=== PATIENT | male | born 1940 | race Caucasian/White ===

== ENCOUNTER 2020-12-14 09:06 | Emergency (ER) | payer MEDICARE, OTHER ==
[2020-12-14] MEDS ORDERED: Sodium Chloride 0.9% 10 ML Syringe FLUSH PRN (09:29)
[2020-12-14] MEDS ORDERED: Sodium Chloride 0.9% 1,000 ML IV STA (09:29)
[2020-12-14] MEDS ORDERED: Pantoprazole 40 MG Vial IVPUSH ONE (09:37)
--- NOTE | 2020-12-14 09:41 | EDM.PDOC ---
ED HPI GENERAL MEDICAL PROBLEM - General Chief Complaint: Gastrointestinal Problem Stated Complaint: BLACK STOOLS Time Seen by Provider: 12/14/20 09:20 Source of Information: Reports: Patient History Limitations: Reports: No Limitations - History of Present Illness INITIAL COMMENTS - FREE TEXT/NARRATIVE: The patient presents with generalized abdominal pain and dark stools. This all started a few days ago. The pain is mild but back in 2012. He had dark stools and it ended up being a GI bleed. He has a history of diverticulitis with colon resection. That was in 1990 and there were complications. 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 He does not think he has an appendix. He is not sure if he has a gallbladder with all the surgeries he had. He has no nausea, vomiting or diarrhea. He was constipated for a couple of days. He has no dysuria. He has no fever, chills, cough, chest pain, or shortness of breath. Onset: Gradual Duration: Day(s): Location: Reports: Abdomen Quality: Reports: Ache Severity: Mild Improves with: Reports: None Worsens with: Reports: None Associated Symptoms: Denies: Chest Pain, Cough, Fever/Chills, Headaches, Nausea/Vomiting, Shortness of Breath Abdominal Pain Score (Numeric/FACES): 2 - Related Data Allergies Allergy/AdvReac Type Severity Reaction Status Date / Time No Known Allergies Allergy Verified 12/14/20 09:22 Home Meds: Home Meds Levothyroxine 1 tab PO DAILY 12/14/20 [History] Omeprazole 1 tab PO DAILY 12/14/20 [History] Simvastatin 1 tab PO DAILY 12/14/20 [History] Past Medical History Cardiovascular History: Reports: High Cholesterol Genitourinary History: Reports: Other (See Below) - Infectious Disease History Infectious Disease History: Reports: Novel Coronavirus - Past Surgical History HEENT Surgical History: Reports: Tonsillectomy GI Surgical History: Reports: Appendectomy, Other (See Below) Other GI Surgeries/Procedures: removal of portion of large intestine Male Surgical History: Reports: Nephrectomy Other Male Surgeries/Procedures: L kidney Musculoskeletal Surgical History: Reports: Shoulder Surgery Social & Family History - Tobacco Use Tobacco Use Status *Q: Former Tobacco User Used Tobacco, but Quit: Yes Month/Year Tobacco Last Used: 1975 - Caffeine Use Caffeine Use: Reports: Coffee - Recreational Drug Use Recreational Drug Use: No ED ROS GENERAL - Review of Systems Review Of Systems: See Below Constitutional: Reports: No Symptoms HEENT: Reports: No Symptoms Respiratory: Reports: No Symptoms Cardiovascular: Reports: No Symptoms Endocrine: Reports: No Symptoms GI/Abdominal: Reports: Abdominal Pain, Black Stool. Denies: Nausea, Vomiting : Reports: No Symptoms Musculoskeletal: Reports: No Symptoms ED EXAM, GI/ABD - Physical Exam Exam: See Below Exam Limited By: No Limitations General Appearance: Alert, No Apparent Distress Ears: Normal External Exam Nose: Normal Inspection Head: Atraumatic, Normocephalic Neck: Normal Inspection Respiratory/Chest: No Respiratory Distress, Lungs Clear, Normal Breath Sounds Cardiovascular: Regular Rate, Rhythm, No Edema, No Murmur GI/Abdominal Exam: Soft, No Organomegaly, No Mass, Tender (Mild generalized tenderness) Rectal (Males) Exam: Black Stool, Heme - Stool Back Exam: Normal Inspection Course - Vital Signs Last Recorded V/S: Last Vital Signs Temp 98 F 12/14/20 09:18 Pulse 65 12/14/20 09:18 Resp 18 12/14/20 09:18 BP 162/89 H 12/14/20 09:18 Pulse Ox 97 12/14/20 09:18 - Orders/Labs/Meds Orders: Active Orders 24 hr Category Date Time Status Peripheral IV Care [RC] . DIRECTED Care 12/14/20 09:29 Active Sodium Chloride 0.9% [Saline Flush] Med 12/14/20 09:29 Active 10 ml FLUSH ASDIRECTED PRN Peripheral IV Insertion Adult [OM.PC] Stat Oth 12/14/20 09:29 Ordered Medication Orders Sodium Chloride (Sodium Chloride 0.9% 10 Ml Syringe) 10 ml FLUSH ASDIRECTED PRN PRN Reason: Keep Vein Open Last Admin: 12/14/20 09:26 Dose: 10 ml Documented by: ALEXIS Labs: Laboratory Tests 12/14/20 12/14/20 12/14/20 Range/Units 09:25 09:25 09:25 WBC 5.89 (4.23-9.07) K/mm3 RBC 4.64 (4.63-6.08) M/mm3 Hgb 15.4 (13.7-17.5) gm/dl Hct 44.2 (40.1-51.0) % MCV 95.3 H (79.0-92.2) fl MCH 33.2 H (25.7-32.2) pg MCHC 34.8 (32.2-35.5) g/dl RDW Std Deviation 45.1 H (35.1-43.9) fL Plt Count 195 (163-337) K/mm3 MPV 9.4 (9.4-12.3) fl Neut % (Auto) 45.3 (34.0-67.9) % Lymph % (Auto) 44.0 (21.8-53.1) % [place] % (Auto) 8.0 (5.3-12.2) % Eos % (Auto) 2.5 (0.8-7.0) Baso % (Auto) 0.0 L (0.1-1.2) % Neut # (Auto) 2.67 (1.78-5.38) K/mm3 Lymph # (Auto) 2.59 (1.32-3.57) K/mm3 [place] # (Auto) 0.47 (0.30-0.82) K/mm3 Eos # (Auto) 0.15 (0.04-0.54) K/mm3 Baso # (Auto) 0.00 L (0.01-0.08) K/mm3 PT 10.8 (9.7-12.0) SECONDS INR 1.01 APTT 24.6 (21.7-31.4) SECONDS Sodium 144 (136-145) mEq/L Potassium 4.2 (3.5-5.1) mEq/L Chloride 102 (98-107) mEq/L Carbon Dioxide 28 (21-32) mEq/L Anion Gap 18.2 H (5-15) BUN 14 (7-18) mg/dL Creatinine 1.4 H (0.7-1.3) mg/dL Est Cr Clr Drug Dosing 41.39 mL/min Estimated GFR (MDRD) 49 (>60) mL/min BUN/Creatinine Ratio 10.0 L (14-18) Glucose 112 (83-115) mg/dL Calcium 9.1 (8.5-10.1) mg/dL Magnesium 2.5 H (1.8-2.4) mg/dl Total Bilirubin 0.6 (0.2-1.0) mg/dL AST 18 (15-37) U/L ALT 25 (16-63) U/L Alkaline Phosphatase 75 (46-116) U/L Total Protein 7.7 (6.4-8.2) g/dl Albumin 4.2 (3.4-5.0) g/dl Globulin 3.5 gm/dL Albumin/Globulin Ratio 1.2 (1-2) Lipase 212 (73-393) U/L Meds: Medications Generic Name Dose Route Start Last Admin Trade Name Freq PRN Reason Stop Dose Admin Sodium Chloride 10 ml 12/14/20 09:29 12/14/20 09:26 Sodium Chloride 0.9% 10 Ml Syringe FLUSH 10 ml ASDIRECTED PRN Administration Keep Vein Open Discontinued Medications Generic Name Dose Route Start Last Admin Trade Name Freq PRN Reason Stop Dose Admin Sodium Chloride 1,000 mls @ 1,000 mls/hr 12/14/20 09:29 12/14/20 09:39 Normal Saline IV 12/14/20 10:28 1,000 mls/hr .BOLUS STA Administration Pantoprazole Sodium 40 mg 12/14/20 09:37 12/14/20 09:45 Pantoprazole 40 Mg Vial IVPUSH 12/14/20 09:38 40 mg ONETIME ONE Administration - Re-Assessments/Exams Free Text/Narrative Re-Assessment/Exam: 12/14/20 09:40 I ordered an IV saline lock, labs, UA and a CT of his abdomen and pelvis. 12/14/20 09:54 The stool was black on rectal exam but it was guiac negative. 12/14/20 11:01 His CBC looks good. His PT and PTT were normal. His anion gap was elevated at 18.2. His creatinine was elevated at 1.4. His magnesium is elevated at 2.5. The rest of his CMP looks good. His lipase is normal. His CT shows very prominent abdominal wall hernias containing colon as well as small bowel. No bowel dilatation is appreciated. Nonobstructing calculus within the right kidney. Degenerative change within the abdominal aorta with minimal aneurysmal dilatation distally with AP dimension of 2.5cm. Other nonacute findings as appreciated. He is doing good. He did take Pepto Bismal a couple days ago. That was why he had dark stools. I will discharge him home. Departure - Departure Time of Disposition: 11:05 Disposition: Home, Self-Care 01 Condition: Good Clinical Impression: AAA (abdominal aortic aneurysm) without rupture, Abdominal wall hernia Abdominal pain Qualifiers: Abdominal location: generalized Qualified Code(s): R10.84 - Generalized abdominal pain - Discharge Information *PRESCRIPTION DRUG MONITORING PROGRAM REVIEWED*: Not Applicable *COPY OF PRESCRIPTION DRUG MONITORING REPORT IN PATIENT LESLIE: Not Applicable Referrals: Ginny German MD [Primary Care Provider] - 1 Week Forms: ED Department Discharge Additional Instructions: Take your medication as prescribed. Follow up with Dr German within a week. You have a slight abdominal aortic aneurysm of 2.5cm. This will need to be monitored over the next few years. Drink plenty of fluids. Take pepcid daily for a week. Please return if you are worse. Sepsis Event Note (ED) - Evaluation Sepsis Screening Result: No Definite Risk - Focused Exam Vital Signs: Vital Signs Temp Pulse Resp BP Pulse Ox 12/14/20 09:18 98 F 65 18 162/89 H 97 - My Orders Last 24 Hours: My Active Orders 12/14/20 09:29 Peripheral IV Care [RC] . DIRECTED Sodium Chloride 0.9% [Saline Flush] 10 ml FLUSH ASDIRECTED PRN Peripheral IV Insertion Adult [OM.PC] Stat - Assessment/Plan Last 24 Hours: My Active Orders 12/14/20 09:29 Peripheral IV Care [RC] . DIRECTED Sodium Chloride 0.9% [Saline Flush] 10 ml FLUSH ASDIRECTED PRN Peripheral IV Insertion Adult [OM.PC] Stat
--- NOTE | 2020-12-14 10:22 | CT ---
CT abdomen and pelvis Technique: Multiple axial sections were obtained from above the dome of the diaphragm inferiorly through the pubic symphysis. Intravenous and oral contrast was not utilized. Reconstructed coronal and sagittal images were obtained. Comparison: Prior abdominal series of 08/02/13 is available. Findings: Large abdominal wall hernia is seen to the anterior and left side. This contains colon as well as multiple small bowel loops. This continues into the pelvis. Several other abdominal wall hernias are also noted containing bowel. Visualized lung bases show nothing acute. Noncontrast appearance of the liver and spleen show no focal abnormality. Gallbladder contains no calcified gallstones. Left adrenal gland shows a small nodule measuring about 1 cm which is most likely due to benign adenoma. Pancreas shows no discrete abnormality. Right kidney shows a cyst nonobstructing stone measuring 7 mm. Surgical clips are seen from prior left nephrectomy. Abdominal aorta shows atherosclerotic change with ectasia. Distal abdominal aorta is minimally aneurysmal with AP dimension of 2.5 cm. No retroperitoneal adenopathy is seen. No pelvic adenopathy is noted. Prostate calcifications are seen. No bowel dilatation is appreciated. Bone window settings were reviewed which show degenerative change primarily at L4-5 and L5-S1. No acute osseous finding is appreciated. Impression: 1. Very prominent abdominal wall hernias containing colon as well as small bowel. No bowel dilatation is appreciated. 2. Nonobstructing calculus within the right kidney. 3. Degenerative change within the abdominal aorta with minimal aneurysmal dilatation distally with AP dimension of 2.5 cm. 4. Other nonacute findings as appreciated. Diagnostic code #3
== END 2020-12-14 11:35 | disposition home or self-care (01) ==
LOC: JD.ED 09:06
DX: I71.4 Abdominal aortic aneurysm, without rupture (principal); K43.9 Ventral hernia without obstruction or gangrene; E78.00 Pure hypercholesterolemia, unspecified; Z79.899 Other long term (current) drug therapy; Z87.891 Personal history of nicotine dependence
CPT/HCPCS: 36415; 74176; 80053; 83690; 83735; 85025; 85610; 85730; 96374; 99284; C9113; J7030